=== PATIENT | female | born 1990 | race Caucasian/White ===

== ENCOUNTER 2018-01-20 13:09 | Emergency (ER) | payer OTHER ==
[2018-01-20 13:23] VITALS: BP 142/86
--- NOTE | 2018-01-20 13:47 | UC ---
Eye Complaint HPI - HPI Summary HPI Summary: 28 y/o female presents to the urgent care c/o RT eye redness and yellowish discharge and FB sensation s/p right eye, she was rubbing her eye and her contact fell out, did not look like it broke. She woke up this morning with crusty drainage and it has been very itchy and painful - History of Current Complaint Chief Complaint: UCEye Stated Complaint: FB IN EYE Time Seen by Provider: 01/20/18 13:33 Hx Obtained From: Patient Hx Last Menstrual Period: Onset/Duration: Sudden Onset, Lasting Days - 1 day, Worse Since - today Timing: Constant Severity Initially: Mild Severity Currently: Moderate Pain Intensity: 6 Pain Scale Used: 0-10 Numeric Location of Injury: Conjunctiva - red w/ yellwosih discharge and FB sensation Character: Foreign Body Sensation Aggravating Factor(s): Blinking Alleviating Factor(s): Other - eye close Associated Signs And Symptoms: Positive: Photophobia - mild, Drainage (Purulent) . Negative: Vision Impairment Bilateral, Vision Impairment Right, Vision Impairment Left - Risk Factors Penetrating Injury Risk Factor: Negative Globe Rupture Risk Factors: Negative Acute Glaucoma Risk Factors: Negative Optic Artery Occlusion Risk Factors: Negative - Allergies/Home Medications Allergies/Adverse Reactions: Allergies Allergy/AdvReac Type Severity Reaction Status Date / Time No Known Allergies Allergy Verified 01/20/18 13:23 Home Medications: Home Medications Ibuprofen 400 mg PO ONCE PRN 01/20/18 [History Confirmed 01/20/18] Loratadine [Claritin] 10 mg PO DAILY 01/20/18 [History Confirmed 01/20/18] PMH/Surg Hx/FS Hx/Imm Hx Previously Healthy: Yes - Pt denies PMHX - Surgical History Surgical History: Yes Surgery Procedure, Year, and Place: TONSILS-WISDOM TEETH - Family History Known Family History: Positive: Diabetes - Social History Occupation: Employed Full-time Lives: With Family Alcohol Use: Weekly Substance Use Type: None Smoking Status (MU): Heavy Every Day Tobacco Smoker Amount Used/How Often: 1/2pk-1pk day Have You Smoked in the Last Year: Yes Household Exposure Type: Cigarettes Review of Systems Constitutional: Negative Skin: Negative Eyes: Drainage - yellowish, Eye Redness - RT eye w/ FB sensation, Photophobia - mild ENT: Negative Respiratory: Negative Cardiovascular: Negative Gastrointestinal: Negative Genitourinary: Negative Motor: Negative Neurovascular: Negative Musculoskeletal: Negative Neurological: Negative Psychological: Negative Is Patient Immunocompromised?: No All Other Systems Reviewed And Are Negative: Yes Physical Exam - Summary Physical Exam Summary: Vital Signs Reviewed: Yes General: Well appearing, well nourished adolescent female in no apparent pain distress Eyes: Positive: RT eye Conjunctiva Inflamed - Visual acuity: WNL,Visual noble: full to confrontation.ing at the RT upper eyelid with erythema and white small pustule in the medial side of eyelid, tender to palpation. PERRLA, EOMI intact w /out limitation or complaint of pain. eyelashes clear. mild tearing and yellowish drainage observed. No ciliary flush. No chemosis, No photophobia. Normal fundoscopic exam; no proptosis, exophthalmos, nystagmus. ENT: Positive: Normal ENT inspection, Hearing grossly normal, Pharynx normal, Nasal congestion, Nasal drainage - clear, TMs normal - B/L external ear canal clear , TM's WNL. Negative: Tonsillar swelling, Tonsillar exudate Neck: Positive: Supple, Nontender, No Lymphadenopathy Respiratory: Positive: Chest nontender, Lungs clear, Normal breath sounds, No respiratory distress Cardiovascular: Positive: RRR, No Murmur, Pulses Normal, Brisk Capillary Refill Abdomen Description: Positive: Nontender, No Organomegaly, Soft. Negative: CVA Tenderness (R), CVA Tenderness (L) Bowel Sounds: Positive: Present Musculoskeletal: Positive: Strength Intact, ROM Intact, No Edema Neurological Exam: Normal Psychological Exam: Normal Skin Exam: Normal Triage Information Reviewed: Yes Vital Signs: Initial Vital Signs Temp 98.5 F 01/20/18 13:17 Pulse 90 01/20/18 13:17 Resp 18 01/20/18 13:17 BP 142/86 01/20/18 13:17 Pulse Ox 98 01/20/18 13:17 Eye Complaint Course/Dx - Differential Dx/Diagnosis Differential Diagnosis/HQI/PQRI: Conjunctivitis, Corneal Abrasion, Periorbital Cellulitis, Orbital Cellulitis Provider Diagnoses: 1- Corneal abrasion. 2- Elevated BP w/o Hx of HTN Discharge - Sign-Out/Discharge Documenting (check all that apply): Patient Departure - d/c home All imaging exams completed and their final reports reviewed: No Studies - Discharge Plan Condition: Stable Disposition: HOME Prescriptions: Erythromycin OPTH OINT* [Erythromycin 0.5% OPTH OINT*] 1 applic RIGHT EYE TID # 1 ophth.oint Patient Education Materials: Corneal Abrasion (ED), Low-Sodium Diet (ED) Forms: *Work Release Referrals: Drew FAJARDO,[place] [Primary Care Provider] - 1 Day Alexander Duff MD [Medical Doctor] - Additional Instructions: 1-Please apply Erythromycin ophthalmic oint as instructed to prevent infection.. 2-Please f/u w/ flame hardener Dr Hernandez for further evaluation and treatment on your Corneal abrasion 3-Your BP is elevated today. please decrease salt in your diet, monitor BP and if it continues to be elevated please f/u with your PCP for further management - Billing Disposition and Condition Condition: STABLE Disposition: Home
[2018-01-20] MEDS ORDERED: Fluorescein Sodium TOPICAL* 1 MG TEST STRIP OPHTHALMIC ONE (13:53)
[2018-01-20] MEDS ORDERED: Eye Irrigation Solution 30 ML BOTTLE RIGHT EYE ONE (13:54)
[2018-01-20] MEDS ORDERED: Tetracaine 0.5% OPTH.SOL 4 ML* 1 DROP BTL RIGHT EYE ONE (13:54)
[2018-01-20] MEDS ORDERED: Tetan/Diph/Pertus SYR(Tdap)* 0.5 ML SYR(BOOSTRIX) use SYR IM ONE (14:26)
== END 2018-01-20 15:12 | disposition home or self-care (01) ==
LOC: UCEAST 13:09
DX: F17.210 Nicotine dependence, cigarettes, uncomplicated (principal); S05.01XA Injury of conjunctiva and corneal abrasion without foreign body, right eye, initial encounter; R03.0 Elevated blood-pressure reading, without diagnosis of hypertension
CPT/HCPCS: 90715; 99212; A9270-GY; G0463